=== PATIENT | female | born 1995 | race Two or more races ===

== ENCOUNTER 2024-05-01 04:00 | Emergency (ER) | payer OTHER ==
[~2024-05-01] VITALS: Ht 157.5 cm; Wt 54.0 kg
[~2024-05-01 04:00] MED LIST: CYCLOBENZAPRINE5 MG PO
[2024-05-01] MEDS ORDERED: LEXAPRO5 MG (04:31)
[2024-05-01] MEDS ORDERED: CARAFATE1 GM (04:31)
[2024-05-01] MEDS ORDERED: FAMOTIDINE/PF 20 MG/2 ML VIAL IV PUSH STA (06:04)
[2024-05-01] MEDS ORDERED: ACETAMINOPHEN 500 MG GEL..CAP PO STA (06:06)
[2024-05-01] MEDS ORDERED: ACETAMINOPHEN 500 MG GEL..CAP PO ONE (06:11)
[2024-05-01] MEDS ORDERED: FAMOTIDINE/PF 20 MG/2 ML VIAL ONE (06:12)
[2024-05-01] MEDS ORDERED: 0.9 % SODIUM CHLORIDE 1,000 ML IV ONE (06:15)
[2024-05-01 07:03] LABS: HEMATOCRIT 37.6 % (36.0-45.00); HEMOGLOBIN 12.8 g/dL (12.0-15.00); MEAN CORPUSCULAR HEMOGLOBIN 28.2 pg (27.00-32.0); PLATELET COUNT 155 K/uL (150-450); RED BLOOD COUNT 4.53 M/uL (4.00-6.00); RED CELL DISTRIBUTION WIDTH 13.6 % (11.5-14.5)
[2024-05-01 07:05] LABS: ALBUMIN 4.1 gm/dL (3.4-5.0); BILIRUBIN TOTAL 0.46 mg/dL (0.3-1.2); CALCIUM 8.9 mg/dL (8.5-10.1); CREATININE SERUM 0.64 mg/dL (0.55-1.02); GFR 110.49; GLOBULINA 4.6 G/DL (2.4-3.5); POTASSIUM 3.61 mEq/L (3.5-5.1); TOTAL PROTEIN 8.7 gm/dL (6.4-8.2)
[2024-05-01 07:45] LABS: URINE BACTERIA 1184.3 uL (0.0-1933); URINE EPITHELIAL CELLS 32.9 uL (0.0-38.8); URINE WBC 32.9 uL (0.0-23.2)
[2024-05-01 07:56] LABS: URINE BILIRRUBIN SMALL (NEGATIVE); URINE BLOOD NEGATIVE; URINE GLUCOSE NEGATIVE (NEGATIVE); URINE KETONE TRACE (NEGATIVE); URINE LEUKOCYTE NEGATIVE; URINE NITRATE NEGATIVE; URINE PROTEIN NEGATIVE (NEGATIVE); URINE UROBILINOGEN 0.2 E.U./dl
[2024-05-01 08:00] LABS: URINE APPEARANCE CLEAR; URINE COLOR YELLOW
[2024-05-01 08:01] LABS: URINE CAST 0.15 uL (0.0-1.40)
== END 2024-05-01 08:44 ==
LOC: ER 04:02
PROVIDERS: General Practice
DX: R51.9 Headache, unspecified (principal); E86.0 Dehydration

== ENCOUNTER 2024-05-02 05:51 | Emergency (ER) | payer OTHER ==
[~2024-05-02] VITALS: Ht 157.5 cm; Wt 53.5 kg
[~2024-05-02 05:51] MED LIST changes: +CARAFATE1 GM; +LEXAPRO5 MG
[2024-05-02] MEDS ORDERED: FAMOTIDINE/PF 20 MG/2 ML VIAL IV PUSH STA (06:16)
[2024-05-02] MEDS ORDERED: hydrOXYzine PAMOATE 50 MG CAPSULE PO STA (06:17)
[2024-05-02] MEDS ORDERED: hydrOXYzine PAMOATE 50 MG CAPSULE PO ONE (06:24)
[2024-05-02] MEDS ORDERED: FAMOTIDINE/PF 20 MG/2 ML VIAL ONE (06:24)
[2024-05-02] MEDS ORDERED: 0.9 % SODIUM CHLORIDE 1,000 ML IV ONE (06:30)
[2024-05-02 07:02] LABS: HEMATOCRIT 37.6 % (36.0-45.00); HEMOGLOBIN 12.9 g/dL (12.0-15.00); MEAN CELL VOLUME 82.6 fL (80.00-100.00); MEAN CORPUSCULAR HEMOGLOBIN 28.3 pg (27.00-32.0); MEAN CORPUSCULAR HGB CONC 34.2 g/dl (32.0-36.0); PLATELET COUNT 148 K/uL (150-450); RED BLOOD COUNT 4.56 M/uL (4.00-6.00); RED CELL DISTRIBUTION WIDTH 13.5 % (11.5-14.5)
[2024-05-02 07:03] LABS: CALCIUM 9.4 mg/dL (8.5-10.1); CREATININE SERUM 0.63 mg/dL (0.55-1.02); GFR 112.52; POTASSIUM 3.92 mEq/L (3.5-5.1)
[2024-05-02] MEDS ORDERED: ACETAMINOPHEN 500 MG GEL..CAP PO STA (07:56)
[2024-05-02] MEDS ORDERED: ACETAMINOPHEN 500 MG GEL..CAP PO ONE (08:00)
== END 2024-05-02 11:02 | disposition home or self-care (01) ==
LOC: ER 05:52
PROVIDERS: General Practice
DX: R53.81 Other malaise (principal); F41.9 Anxiety disorder, unspecified; E86.0 Dehydration; R51.9 Headache, unspecified